=== PATIENT | male | born 1995 | race Caucasian/White ===

== ENCOUNTER 2019-01-23 11:50 | Emergency (ER) | payer OTHER ==
[~2019-01-23] VITALS: Ht 193 cm; Wt 131.5 kg
[2019-01-23 12:05] VITALS: BP 164/92
[2019-01-23] MEDS ORDERED: IV NORMAL SALINE 1,000ML 1,000 ML IV ONE (12:45)
[2019-01-23 12:57] LABS: BASO # 0.1 x10^3/uL (0.0-0.2); BASO % 1 % (0-3); EOS # 0.1 x10^3/uL (0.0-0.7); EOS % 1 % (0-3); HEMATOCRIT 47.3 % (39.0-53.0); HEMOGLOBIN 15.8 g/dL (13.0-17.5); LYMPH % 34 % (24-48); MEAN CORPUSCULAR HEMOGLOBIN 30 pg (25-35); MEAN CORPUSCULAR HGB CONC 33 g/dL (31-37); MEAN CORPUSCULAR VOLUME 89 fL (79-100); MONO # 0.9 x10^3/uL (0.0-1.1); MONO % 8 % (0-9); NEUT # 6.7 x10^3uL (1.8-7.7); NEUT % 57 % (31-73); PLATELET COUNT 230 x10^3/uL (140-400); RED BLOOD COUNT 5.34 x10^6/uL (4.30-5.70); RED CELL DISTRIBUTION WIDTH 12.9 % (11.5-14.5); WHITE BLOOD COUNT 11.8 x10^3/uL (4.0-11.0)
[2019-01-23] MEDS ORDERED: LIDOCAINE 2%/EPI 1:100,000 20 ML VIAL. IJ ONE (13:00)
--- NOTE | 2019-01-23 13:04 | PHYS DOC ---
Past History Past Medical History: No Pertinent History Past Surgical History: Other Additional Past Surgical Histo: Pec repair, right knee Alcohol Use: Occasionally Drug Use: None Adult General Chief Complaint Chief Complaint: abscess HPI HPI 23-year-old male presents with abscess on his chin. Patient states it started out as a pimple 3 days ago. He got bigger yesterday and when he woke up this morning it was over double the size. It is erythematous and tender. He feels like it is pushing on part of his throat. He has had skin infections before, but has never needed antibiotics. No known history of MRSA. He isn't sure what caused this. He has no fever or chills. He denies other complaints. Review of Systems Review of Systems Constitutional: Denies fever or chills [] Eyes: Denies change in visual acuity, redness, or eye pain [] HENT: Denies nasal congestion or sore throat [] Respiratory: Denies cough or shortness of breath [] Cardiovascular: No additional information not addressed in HPI [] GI: Denies abdominal pain, nausea, vomiting, bloody stools or diarrhea [] : Denies dysuria or hematuria [] Musculoskeletal: Denies back pain or joint pain [] Integument: Chin abscess[] Neurologic: Denies headache, focal weakness or sensory changes [] Endocrine: Denies polyuria or polydipsia [] All other systems were reviewed and found to be within normal limits, except as documented in this note. Current Medications Current Medications Current Medications Medications (Trade) Dose Ordered Sig/Meli Start Time Stop Time Status Last Admin Dose Admin Lidocaine/ Epinephrine (Xylocaine 2%-Epi 1:100,000) 20 ml 1X ONCE 01/23/19 13:00 01/23/19 13:02 DC Sodium Chloride 1,000 ml @ 1,000 mls/hr 1X ONCE 01/23/19 12:45 01/23/19 13:44 Allergies Allergies Allergies Coded Allergies Type Severity Reaction Last Updated Verified prochlorperazine Allergy Unknown 01/23/19 Yes Physical Exam Physical Exam Constitutional: Well developed, well nourished, no acute distress, non-toxic appearance. [] HENT: Normocephalic, atraumatic, bilateral external ears normal, oropharynx moist, no oral exudates, nose normal. [] Eyes: PERRLA, EOMI, conjunctiva normal, no discharge. [] Neck: Normal range of motion, no tenderness, supple, no stridor. [] Cardiovascular:Heart rate regular rhythm, no murmur [] Lungs & Thorax: Bilateral breath sounds clear to auscultation [] Abdomen: Bowel sounds normal, soft, no tenderness, no masses, no pulsatile masses. [] Skin: 5 cm x 5 cm erythematous scan with 1 cm fluctuant center, consistent with abscess of the chin[] Back: No tenderness, no CVA tenderness. [] Extremities: No tenderness, no cyanosis, no clubbing, ROM intact, no edema. [] Neurologic: Alert and oriented X 3, normal motor function, normal sensory function, no focal deficits noted. [] Psychologic: Affect normal, judgement normal, mood normal. [] Current Patient Data Vital Signs Vital Signs Date Time Temp Pulse Resp B/P (MAP) Pulse Ox O2 Delivery O2 Flow Rate FiO2 01/23/19 12:05 99.1 89 16 98 Room Air Lab Results Laboratory Tests Test 01/23/19 12:41 White Blood Count 11.8 x10^3/uL (4.0-11.0) H Red Blood Count 5.34 x10^6/uL (4.30-5.70) Hemoglobin 15.8 g/dL (13.0-17.5) Hematocrit 47.3 % (39.0-53.0) Mean Corpuscular Volume 89 fL (79-100) Mean Corpuscular Hemoglobin 30 pg (25-35) Mean Corpuscular Hemoglobin Concent 33 g/dL (31-37) Red Cell Distribution Width 12.9 % (11.5-14.5) Platelet Count 230 x10^3/uL (140-400) Neutrophils (%) (Auto) 57 % (31-73) Lymphocytes (%) (Auto) 34 % (24-48) Monocytes (%) (Auto) 8 % (0-9) Eosinophils (%) (Auto) 1 % (0-3) Basophils (%) (Auto) 1 % (0-3) Neutrophils # (Auto) 6.7 x10^3uL (1.8-7.7) Lymphocytes # (Auto) 4.0 x10^3/uL (1.0-4.8) Monocytes # (Auto) 0.9 x10^3/uL (0.0-1.1) Eosinophils # (Auto) 0.1 x10^3/uL (0.0-0.7) Basophils # (Auto) 0.1 x10^3/uL (0.0-0.2) EKG EKG [] Radiology/Procedures Radiology/Procedures [] Course & Med Decision Making Course & Med Decision Making Pertinent Labs and Imaging studies reviewed. (See chart for details) Patient did have an abscess of his chin. I performed an I&D. See note below for more details. The patient was given 1 g of Rocephin in the emergency room and discharged on 7 days of Bactrim DS twice a day. He is stable for discharge at this time. If his condition worsens, he will return to the emergency room. [] Dragon Disclaimer Dragon Disclaimer This electronic medical record was generated, in whole or in part, using a voice recognition dictation system. Incision and Drainage Indication: Skin abscess of the chin. Procedure: Consent was obtained from the patient for incision and drainage of his chin abscess. The area was cleaned with alcohol. The abscess was anesthetized with 2% lidocaine with epinephrine. A total 1 mL was used. A 5 mm incision was made with a #11 blade. There was purulent material expressed. I used a sterile Q-tip to break up loculations. There was further pus expressed. Total volume was about 1.5 mL. No packing was used. A clean dressing was applied. Patient's tetanus is up-to-date. The patient tolerated the procedure well Complications: None Departure Departure: Impression: Primary Impression: Abscess or cellulitis of chin Disposition: 01 HOME, SELF-CARE Condition: STABLE Referrals: [facility]PAUROR[facility] (PCP) Patient Instructions: Abscess, Care After Scripts Sulfamethoxazole/Trimethoprim (BACTRIM DS TABLET) 1 Each Tablet 1 TAB PO BID for infection for 7 Days, #14 TAB 0 Refills Prov: DANTE MEDRANO DO 01/23/19 DANTE MEDRANO DO Jan 23, 2019 13:04
[2019-01-23 13:11] LABS: ALBUMIN 3.9 g/dL (3.4-5.0); CALCIUM 8.8 mg/dL (8.5-10.1); CREATININE 1.3 mg/dL (0.7-1.3); POTASSIUM 4.5 mmol/L (3.5-5.1); TOTAL BILIRUBIN 0.9 mg/dL (0.2-1.0); TOTAL PROTEIN 7.9 g/dL (6.4-8.2)
[2019-01-23] MEDS ORDERED: cefTRIAXone SODIUM 1 GM VIAL ONE (13:52)
[2019-01-23] MEDS ORDERED: IV NORMAL SALINE 50ML 50 ML ONE (13:52)
[2019-01-23] MEDS ORDERED: SULF1TAB24 PO (13:53)
== END 2019-01-23 14:01 | disposition home or self-care (01) ==
LOC: ER 11:50
DX: L02.01 Cutaneous abscess of face (principal); L03.211 Cellulitis of face; Z88.8 Allergy status to other drugs, medicaments and biological substances
CPT/HCPCS: 10060; 36415; 80053; 83605; 85025; 87040; 87070; 99284

== ENCOUNTER → 2019-09-02 | Outpatient (CLI) | payer OTHER ==
[~2019-09-02] MED LIST: SULF1TAB24 PO
--- NOTE | 2019-09-02 15:55 | RAD ---
PROCEDURE: LUMBAR SPINE MIN 4V STUDY DATE: 09/02/2019 CLINICAL INDICATION / HISTORY: Reason: LOW BACK PAIN / Spl. Instructions: / History: . TECHNIQUE: 3 views lumbar spine COMPARISON: None FINDINGS: Five lumbar segments are identified. Lumbar vertebral bodies are normal in height and alignment. Disc height is maintained. Pedicles are intact. IMPRESSION: No fracture seen. Electronically signed by: Kingsley Al MD (09/02/2019 3:52 PM) [id number]
== END | disposition home or self-care (01) ==
LOC: DXRAD 14:43
PROVIDERS: ATTEND Physician Assistant
DX: M54.5 Low back pain (principal)
CPT/HCPCS: 72110